=== PATIENT | female | born 1960 | race Two or more races ===

== ENCOUNTER → 2022-10-27 | Outpatient (CLI) | payer SELFPAY ==
[2022-10-27 11:11] LABS: HEMATOCRIT 27.8 % (36.0-48.0); HEMOGLOBIN 9.3 g/dL (12.0-16.0)
[2022-10-28 10:45] LABS: HEMOGLOBIN 8.7 g/dL (12.0-16.0)
== END | disposition home or self-care (01) ==
LOC: LAB 11:06
PROVIDERS: ATTEND Internal Medicine Critical Care Medicine
DX: D64.9 Anemia, unspecified (principal)
CPT/HCPCS: 36415; 85014; 85018